=== PATIENT | female | born 1970 | race Caucasian/White ===

== ENCOUNTER → 2021-09-20 | Outpatient (CLI) | payer OTHER | LOC: KOH-I 13:18 | DX: R05.9 Cough, unspecified (principal); M54.2 Cervicalgia; M54.50 Low back pain, unspecified; M47.812 Spondylosis without myelopathy or radiculopathy, cervical region; M54.6 Pain in thoracic spine; M47.817 Spondylosis without myelopathy or radiculopathy, lumbosacral region | CPT/HCPCS: 71046; 72040; 72070; 72100 ==

== ENCOUNTER 2022-01-27 20:39 | Emergency (ER) | payer OTHER ==
[2022-01-28] MEDS ORDERED: PROVENTIL HFA6.7 GM INH (01:40)
== END 2022-01-28 01:43 | disposition home or self-care (01) ==
LOC: ER1 20:39
DX: U07.1 COVID-19 (principal); B34.9 Viral infection, unspecified; Z90.89 Acquired absence of other organs
CPT/HCPCS: 0240U; 99283